=== PATIENT | female | born 1995 | race Caucasian/White ===

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

== ENCOUNTER → 2017-02-07 | Outpatient (CLI) | payer SELFPAY | LOC: BHSO 10:04 | DX: F33.1 Major depressive disorder, recurrent, moderate (principal) ==

== ENCOUNTER → 2017-02-15 | Outpatient (CLI) | payer SELFPAY | LOC: BHSO 11:19 | DX: F33.1 Major depressive disorder, recurrent, moderate (principal) ==

== ENCOUNTER → 2017-03-12 | Outpatient (CLI) | payer SELFPAY | LOC: BHSO 13:08 | DX: F33.1 Major depressive disorder, recurrent, moderate (principal) ==

== ENCOUNTER → 2017-03-26 | Outpatient (CLI) | payer SELFPAY | LOC: BHSO 13:45 | DX: F41.1 Generalized anxiety disorder (principal) ==

== ENCOUNTER → 2017-04-11 | Outpatient (CLI) | payer SELFPAY | LOC: BHSO 14:33 | DX: F33.1 Major depressive disorder, recurrent, moderate (principal) ==

== ENCOUNTER → 2017-04-17 | Outpatient (CLI) | payer SELFPAY | LOC: BHSO 14:27 | DX: F41.1 Generalized anxiety disorder (principal) ==

== ENCOUNTER 2017-04-27 02:03 | Emergency (ER) | payer SELFPAY ==
[~2017-04-27] VITALS: Ht 154.9 cm; Wt 55.9 kg
[~2017-04-27 02:03] MED LIST changes: -EFFE25TA PO; -FELDENE10 MG; -FLEXERIL 1010 MG/TAB PO; -NORCO 325 MG-51 TAB PO; -PRILOSEC10 MG PO
[2017-04-27 02:04] VITALS: TEMP 98.8
[2017-04-27] MEDS ORDERED: FELDENE10 MG (02:09)
[2017-04-27] MEDS ORDERED: EFFE25TA PO (02:09)
[2017-04-27] MEDS ORDERED: PRILOSEC10 MG PO (02:10)
[2017-04-27 02:34] LABS: PH 5 (5-8); SQUAMOUS EPITHELIAL 0-2 /hpf; URINE APPEARANCE Clear; URINE BACTERIA Rare /hpf; URINE BILIRUBIN Negative (NEGATIVE); URINE BLOOD 1+ (NEGATIVE); URINE COLOR Yellow; URINE GLUCOSE Negative (NEGATIVE); URINE KETONE Negative (NEGATIVE); URINE UROBILINOGEN Negative (NEGATIVE)
[2017-04-27 02:34] LABS: BASO % 0.4 % (0.0-2.0); EOS # 0.1 (0.0-0.7); EOS % 1.5 % (0-4.0); GRAN # 4.6 (1.4-6.5); GRAN % 48.6 % (42.2-75.2); HEMATOCRIT 40.2 % (35.0-45.0); HEMOGLOBIN 13.3 g/dl (12.0-15.0); LYMPH % 42.1 % (20.0-51.0); MEAN CELL VOLUME 83 fl (80.0-95.0); MEAN CORPUSCULAR HEMOGLOBIN 28 pg (26.0-32.0); MEAN CORPUSCULAR HGB CONC 33 g/dl (33.0-37.0); MEAN PLATELET VOLUME 10.8 fl (7.4-10.4); MONO # 0.7 (0.1-0.6); MONO % 7.2 % (1.7-9.3); PLATELET COUNT 190 K/mm3 (130-400); RED BLOOD COUNT 4.84 M/mm3 (4.10-5.30); REDCELL DISTRIBUTION WIDTH-CV 12.2 % (11.5-14.5); WHITE BLOOD COUNT 9.5 K/mm3 (4.8-10.8)
[2017-04-27 02:48] LABS: ADJUSTED CALCIUM 8.8 mg/dL (8.4-10.2); ALBUMIN 4.7 gm/dL (3.5-5.0); BILIRUBIN,TOTAL 0.4 mg/dL (0.0-1.0); CALCIUM 9.4 mg/dL (8.4-10.2); CREATININE, serum 0.86 mg/dL (0.52-1.25); POTASSIUM 3.9 mmol/L (3.4-5.0); TOTAL PROTEIN 7.8 gm/dL (6.4-8.2)
[2017-04-27] MEDS ORDERED: FLEXERIL 1010 MG/TAB PO (04:53)
[2017-04-27] MEDS ORDERED: NORCO 325 MG-51 TAB PO (04:53)
[2017-04-27 04:56] VITALS: BP 120/84; PULSE 98
== END 2017-04-27 05:05 | disposition home or self-care (01) ==
LOC: COL.ER 02:03
PROVIDERS: Emergency Medicine
DX: S40.021A Contusion of right upper arm, initial encounter (principal); Z32.02 Encounter for pregnancy test, result negative; V03.10XA Pedestrian on foot injured in collision with car, pick-up truck or van in traffic accident, initial encounter; Y92.410 Unspecified street and highway as the place of occurrence of the external cause

== ENCOUNTER → 2017-05-01 | Outpatient (CLI) | payer SELFPAY ==
[~2017-05-01] MED LIST changes: +BACTRIM DS 8001 TAB PO; +BACTROBAN 22GM22 GM NAS; +CEFTIN 250250 MG/TAB PO; +DOXYCYCLINE 10100 MG PO; +EFFE25TA PO; +EFFEXOR-XR150 MG PO; +FELDENE10 MG PO; +FLEXERIL 1010 MG/TAB PO; +HUMIRA(CF)40 MG/0.4 SQ; +LYRICA 50MG CAP50 MG PO; +NEXPLANON68 MG ID; +NORCO 325 MG-51 TAB PO; +PRILOSEC10 MG PO; +TYLENOL 8 HR PO; +ULTRAM 50MG TAB50 MG PO; +ZYRTEC 10MG10 MG PO
== END ==
LOC: BHSO 14:29
DX: F32.9 Major depressive disorder, single episode, unspecified (principal)

== ENCOUNTER → 2017-05-21 | Outpatient (CLI) | payer SELFPAY ==
[~2017-05-21] MED LIST changes: -BACTRIM DS 8001 TAB PO; -BACTROBAN 22GM22 GM NAS; -CEFTIN 250250 MG/TAB PO; -DOXYCYCLINE 10100 MG PO; -EFFEXOR-XR150 MG PO; +FELDENE10 MG; -FELDENE10 MG PO; -HUMIRA(CF)40 MG/0.4 SQ; -LYRICA 50MG CAP50 MG PO; -NEXPLANON68 MG ID; -TYLENOL 8 HR PO; -ULTRAM 50MG TAB50 MG PO; -ZYRTEC 10MG10 MG PO
== END ==
LOC: BHSO 13:29
DX: F41.1 Generalized anxiety disorder (principal)

== ENCOUNTER → 2017-05-28 | Outpatient (CLI) | payer SELFPAY | LOC: BHSO 14:33 | DX: F41.1 Generalized anxiety disorder (principal) ==

== ENCOUNTER → 2017-06-04 | Outpatient (CLI) | payer SELFPAY | LOC: BHSO 13:33 | DX: F33.1 Major depressive disorder, recurrent, moderate (principal) ==

== ENCOUNTER → 2017-06-18 | Outpatient (CLI) | payer SELFPAY | LOC: BHSO 13:37 | DX: F41.1 Generalized anxiety disorder (principal) ==

== ENCOUNTER → 2017-07-10 | Outpatient (CLI) | payer SELFPAY | LOC: BHSO 14:29 | DX: F41.1 Generalized anxiety disorder (principal) ==

== ENCOUNTER → 2017-07-17 | Outpatient (CLI) | payer SELFPAY | LOC: BHSO 14:23 | DX: F41.1 Generalized anxiety disorder (principal) ==

== ENCOUNTER → 2017-08-06 | Outpatient (CLI) | payer SELFPAY | LOC: BHSO 13:24 | DX: F33.1 Major depressive disorder, recurrent, moderate (principal) ==

== ENCOUNTER → 2017-08-28 | Outpatient (CLI) | payer OTHER | LOC: BHSO 14:29 | DX: F41.1 Generalized anxiety disorder (principal) ==

== ENCOUNTER → 2017-09-04 | Outpatient (CLI) | payer OTHER | LOC: BHSO 13:26 | DX: F33.1 Major depressive disorder, recurrent, moderate (principal) ==

== ENCOUNTER → 2017-09-09 | Outpatient (CLI) | payer OTHER | LOC: COL.RAD 08-27 08:30 | DX: M25.851 Other specified joint disorders, right hip (principal); G89.11 Acute pain due to trauma | CPT/HCPCS: A9585; J3301; Q9967 ==

== ENCOUNTER → 2017-09-11 | Outpatient (CLI) | payer OTHER | LOC: BHSO 13:10 | DX: F41.1 Generalized anxiety disorder (principal) ==

== ENCOUNTER → 2017-09-23 | Outpatient (CLI) | payer OTHER | LOC: BHSO 13:31 | DX: F41.1 Generalized anxiety disorder (principal) | CPT/HCPCS: G0463 ==

== ENCOUNTER → 2017-09-26 | Outpatient (CLI) | payer OTHER | LOC: BHSO 13:11 | DX: F41.1 Generalized anxiety disorder (principal) ==

== ENCOUNTER → 2018-06-18 | Outpatient (CLI) | payer SELFPAY | LOC: COL.RAD 13:30 | DX: M25.552 Pain in left hip (principal) | CPT/HCPCS: A9585; J3301; Q9967 ==

== ENCOUNTER 2019-03-11 18:32 | Inpatient (IN) | payer OTHER ==
[~2019-03-11] VITALS: Ht 154.9 cm; Wt 54.4 kg
[~2019-03-11 18:32] MED LIST changes: -FELDENE10 MG; +FELDENE10 MG PO
[2019-03-11 19:07] LABS: HEMATOCRIT 39.9 % (37.0-47.0); HEMOGLOBIN 12.9 g/dl (12.5-16.0); MEAN CELL VOLUME 88 fl (80.0-100.0); MEAN CORPUSCULAR HEMOGLOBIN 29 pg (27.0-31.0); MEAN CORPUSCULAR HGB CONC 32 g/dl (33.0-37.0); PLATELET COUNT 223 K/mm3 (130-400); RED BLOOD COUNT 4.53 M/mm3 (4.10-5.30); REDCELL DISTRIBUTION WIDTH-CV 13.2 % (11.5-14.5)
[2019-03-11] MEDS ORDERED: LYRICA 50MG CAP50 MG PO (19:14)
[2019-03-11 19:16] LABS: COLLECTION METHOD CLEAN CATCH
[2019-03-11 19:16] LABS: ALBUMIN 4.6 gm/dL (3.5-5.0); BILIRUBIN,TOTAL 0.6 mg/dL (0.0-1.0); CALCIUM 9.9 mg/dL (8.4-10.2); CREATININE, serum 1.13 (0.52-1.25); POTASSIUM 3.8 mmol/L (3.4-5.0); TOTAL PROTEIN 8.7 gm/dL (6.4-8.2)
[2019-03-11 19:28] LABS: C-REACTIVE PROTEIN 22.4 mg/dL (0.0-0.9)
[2019-03-11 19:43] LABS: BAND 5 % (0-10); LYMPHOCYTE 4 % (20.0-51.0); METAMYELOCYTE 1 % (0-0); NEUTROPHILS 87 % (42.0-75.2); PLATELET ESTIMATE NORMAL (NORMAL)
[2019-03-11 19:54] LABS: MUCOUS Present /lpf; PH 5 (5-8); URINE APPEARANCE Cloudy; URINE BACTERIA Moderate /hpf; URINE BILIRUBIN Negative (NEGATIVE); URINE BLOOD 2+ (NEGATIVE); URINE COLOR Yellow; URINE GLUCOSE Negative (NEGATIVE); URINE KETONE Trace (NEGATIVE); URINE LEUKOCYTE ESTERASE 2+ (NEGATIVE); URINE NITRATE Positive (NEGATIVE); URINE PROTEIN(semi-quant) 2+ (NEGATIVE); URINE RBC >50 /hpf; URINE UROBILINOGEN Negative (NEGATIVE)
--- NOTE | 2019-03-11 21:45 | NUR ---
PT TO RM 308 PER COT FROM ER. ASSESSMENT COMPLETE. MOTHER AT SIDE. IVF OF NS INFUSING IN R AC. C/O MILD PAIN TO BILAT LQ RATED 5/10. CALL LIGHT AT SIDE.
[2019-03-11 22:09] VITALS: BP 108/56; PULSE 107; TEMP 98.4
[2019-03-11 22:36] LABS: INR 1.3 (0.8-3.0); PROTHROMBIN TIME 15.5 SECONDS (9.7-12.8)
[2019-03-11] MEDS ORDERED: EFFEXOR-XR150 MG PO (23:06)
[2019-03-11] MEDS ORDERED: HUMIRA(CF)40 MG/0.4 SQ (23:07)
[2019-03-11] MEDS ORDERED: TYLENOL 8 HR PO (23:08)
[2019-03-11] MEDS ORDERED: ZYRTEC 10MG10 MG PO (23:08)
[2019-03-12 01:11] VITALS: BP 109/52; PULSE 131; TEMP 103
[2019-03-12] MEDS ORDERED: NEXPLANON68 MG ID (01:19)
[2019-03-12 04:50] VITALS: BP 108/71; PULSE 96; TEMP 98.2
--- NOTE | 2019-03-12 05:00 | NUR ---
PT REQUESTS AND GIVEN MOTRIN 400MG PO FOR RLQ PAIN 03/04. AMBULATES TO BR AND THEN BACK TO BED. CALL LIGHT IN REACH. MOTHER AT BEDSIDE.
[2019-03-12 07:17] VITALS: BP 93/47; PULSE 96; TEMP 98.4
[2019-03-12 07:26] LABS: MEAN CELL VOLUME 90 fl (80.0-100.0); MEAN CORPUSCULAR HGB CONC 32 g/dl (33.0-37.0); MEAN PLATELET VOLUME 10.6 fl (7.4-10.4); PLATELET COUNT 174 K/mm3 (130-400); RED BLOOD COUNT 3.53 M/mm3 (4.10-5.30); REDCELL DISTRIBUTION WIDTH-CV 13.5 % (11.5-14.5)
--- NOTE | 2019-03-12 07:30 | NUR ---
PT GIVEN UA CUP TO OBTAIN SPECIMEN AND INSTRUCTED TO NOTIFY NURSE WHEN IS OBTAINED. REPORT GIVEN TO ONCOMING RN. CALL LIGHT IN REACH.
[2019-03-12 07:32] LABS: HEMATOCRIT 31.6 % (37.0-47.0); MEAN CORPUSCULAR HEMOGLOBIN 28 pg (27.0-31.0)
[2019-03-12 07:34] LABS: ALBUMIN 2.9 gm/dL (3.5-5.0); BILIRUBIN,TOTAL 0.2 mg/dL (0.0-1.0); CREATININE, serum 1.08 (0.52-1.25); POTASSIUM 3.9 mmol/L (3.4-5.0); TOTAL PROTEIN 5.7 gm/dL (6.4-8.2)
[2019-03-12 08:54] LABS: BAND 12 % (0-10); LYMPHOCYTE 8 % (20.0-51.0); NEUTROPHILS 69 % (42.0-75.2)
[2019-03-12 08:55] LABS: PLATELET ESTIMATE NORMAL (NORMAL)
--- NOTE | 2019-03-12 10:55 | NUR ---
COLLECTED URINE SPECIMEN AT THIS TIME. PT HAD C/O PAIN AT THIS TIME, THIS NURSE ADMINISTERED PRN PAIN MED. PT VOICED SHE HAD SOME NAUSEA WELL, ADMINISTERED ZOFRAN. HAS NOTED CHILLS AT THIS TIME, RECIEVED WARM BLANKET. IV FLUIDS BACKED DOWN TO 100ML/HR. NO OTHER ISSUES VOICED AT THIS TIME.
[2019-03-12 11:21] VITALS: BP 102/55; PULSE 88; TEMP 98.6
--- NOTE | 2019-03-12 14:22 | NUR ---
Initial visit; Patient thanked Leather Polisher for looking in on her and wishing her well and letting her know Leather Polisher is available to listen.
[2019-03-12 15:08] VITALS: BP 124/76; PULSE 111; TEMP 97.6
--- NOTE | 2019-03-12 16:15 | NUR ---
SW met with patient and mother to discuss discharge planning. Patient lives independently at home with her mother. Patient's PCP is Dr Tarango and she obtain prescriptions from [facility]. Patient is independent with all ADLs. Patient does not have insurance but patient's mother reports patient has been approved for [employer] assistance. PARTICIA reported a financial counselor will visit with patient. PATRICIA does not anticipate any discharge needs.
--- NOTE | 2019-03-12 17:34 | NUR ---
UROLOGIST CONSULT WAS CANCELLED AND CONFIRMED WITH HOSPITALIST. NOTIFIED FAMILY AND WERE UPSET. WE ASKED HOSPITALIST WOULD COME UP AND VISIT WITH THE PATIENT AND FAMILY DUE TO CANCELLING THE UROLOGY CONSULT. [facility] WAS NOTIFIED AND SAID THAT THEY WOULD COME VISIT.
--- NOTE | 2019-03-12 18:17 | NUR ---
DR. FINN INTO SEE PATIENT AT THIS TIME.
[2019-03-12 19:21] VITALS: BP 117/74; PULSE 89; TEMP 97.8
--- NOTE | 2019-03-12 21:30 | NUR ---
Pt resting in bed with mother at side. States she is feeling better. Has ate a part of a sandwich and cookie for a BS earlier in the low 60's. Has crackers and peanut butter at bedside. Rocephin 1gm IV given and pt request rest of HS meds be given later when she is ready to go to sleep. Will continue to monitor. Call light within reach.
[2019-03-13 00:07] VITALS: BP 139/76; PULSE 99; TEMP 97.9
[2019-03-13 04:50] VITALS: BP 112/60; PULSE 85; TEMP 98.4
--- NOTE | 2019-03-13 05:01 | NUR ---
Pt asleep in bed. Took HS meds around 2AM per pt request. Had 2 low BS last evening. Stated she felt better early this AM. IVF continue to infuse at 100mL/hr.
[2019-03-13 06:19] LABS: MEAN CELL VOLUME 88 fl (80.0-100.0); MEAN CORPUSCULAR HGB CONC 32 g/dl (33.0-37.0); MEAN PLATELET VOLUME 10.6 fl (7.4-10.4); PLATELET COUNT 164 K/mm3 (130-400); RED BLOOD COUNT 3.34 M/mm3 (4.10-5.30); REDCELL DISTRIBUTION WIDTH-CV 13.6 % (11.5-14.5)
[2019-03-13 06:20] LABS: HEMATOCRIT 29.4 % (37.0-47.0); HEMOGLOBIN 9.4 g/dl (12.5-16.0); MEAN CORPUSCULAR HEMOGLOBIN 28 pg (27.0-31.0)
[2019-03-13 06:40] LABS: BAND 8 % (0-10); HYPOCHROMIA 1+; LYMPHOCYTE 13 % (20.0-51.0); NEUTROPHILS 73 % (42.0-75.2); PLATELET ESTIMATE NORMAL (NORMAL)
[2019-03-13 06:41] LABS: ALBUMIN 2.8 gm/dL (3.5-5.0); ANISOCYTOSIS 1+; BILIRUBIN,TOTAL 0.2 mg/dL (0.0-1.0); CALCIUM 8.3 mg/dL (8.4-10.2); CREATININE, serum 0.87 (0.52-1.25); MICROCYTOSIS 1+; POTASSIUM 3.6 mmol/L (3.4-5.0); TOTAL PROTEIN 5.7 gm/dL (6.4-8.2)
--- NOTE | 2019-03-13 08:01 | NUR ---
Uneventful shift. Report given to TRACY Huang. Pt refused Lovenox 40mg this AM.
[2019-03-13 08:21] VITALS: BP 112/61; PULSE 80; TEMP 98.3
[2019-03-13] MEDS ORDERED: CEFTIN 250250 MG/TAB PO (10:32)
[2019-03-13] MEDS ORDERED: ULTRAM 50MG TAB50 MG PO (10:45)
--- NOTE | 2019-03-13 12:30 | NUR ---
Pt assessment complete and charted. Pt sitting in bed with mom at bedside. Pt denies dizziness, SOB, on room air. Pt states she has some nausea but no vomiting. pt blood sugar 74 this morning, encouraged to eat, currently sipping on pepsi and root beer. RAC IV fluids infusing with no complications. Pt states she has mild flank pain but denies wanting medication. No other needs at this time.
--- NOTE | 2019-03-13 14:31 | NUR ---
pt discharge instructions discussed and reviewed with patient and family. Verbalized understanding. RAC IV discontinued with catheter tip intact, no complications. this nurse instructed pt to call when ready to be escorted out. Mom was to go and "roll windows down in car and return to help pack up stuff". Informed pt we would get her a wheelchair to be escorted in. All questions answered, no other needs at this time.
--- NOTE | 2019-03-13 15:00 | NUR ---
This nurse and the aide checked room for pt since she had not called out to be escorted down for discharge. Pt and mom not in room. pt escorted herself out with mom, did not call for staff to escort her out. All discharge papers signed and verbalized understanding.
== END 2019-03-13 15:03 | disposition home or self-care (01) | DRG 872 ==
LOC: COL.ER 18:32 → MEDICAL 20:51
PROVIDERS: Family Medicine; Nurse Practitioner Family; ADMIT Student in an Organized Health Care Education/Training Program
DX: A41.9 Sepsis, unspecified organism (principal); N12 Tubulo-interstitial nephritis, not specified as acute or chronic; E86.0 Dehydration; M06.9 Rheumatoid arthritis, unspecified; M79.7 Fibromyalgia; N20.0 Calculus of kidney; R53.82 Chronic fatigue, unspecified; E16.2 Hypoglycemia, unspecified; Z87.440 Personal history of urinary (tract) infections
CPT/HCPCS: 99222-AI; 99239; A4216; J0696; J1170; J1885; J2405; J7030; Q9967

== ENCOUNTER 2019-04-23 18:23 | Inpatient (IN) | payer SELFPAY ==
[~2019-04-23] VITALS: Ht 154.9 cm; Wt 51.7 kg
[~2019-04-23 18:23] MED LIST changes: +CEFTIN 250250 MG/TAB PO; +EFFEXOR-XR150 MG PO; +HUMIRA(CF)40 MG/0.4 SQ; +LYRICA 50MG CAP50 MG PO; +NEXPLANON68 MG ID; +TYLENOL 8 HR PO; +ULTRAM 50MG TAB50 MG PO; +ZYRTEC 10MG10 MG PO
[2019-04-23] MEDS ORDERED: BACTROBAN 22GM22 GM NAS (19:09)
[2019-04-23] MEDS ORDERED: BACTRIM DS 8001 TAB PO (19:09)
[2019-04-23 19:39] LABS: BASO # 0.1 (0.0-0.2); BASO % 0.4 % (0.0-2.0); EOS # 0.1 (0.0-0.7); EOS % 0.8 % (0-4.0); GRAN # 9.1 (1.4-6.5); GRAN % 69.4 % (42.2-75.2); HEMATOCRIT 37.9 % (37.0-47.0); HEMOGLOBIN 12.2 g/dl (12.5-16.0); LYMPH # 2.6 (1.2-3.4); LYMPH % 20.2 % (20.0-51.0); MEAN CELL VOLUME 87 fl (80.0-100.0); MEAN CORPUSCULAR HEMOGLOBIN 28 pg (27.0-31.0); MEAN CORPUSCULAR HGB CONC 32 g/dl (33.0-37.0); MEAN PLATELET VOLUME 10.4 fl (7.4-10.4); MONO # 1.2 (0.1-0.6); MONO % 8.8 % (1.7-9.3); PLATELET COUNT 218 K/mm3 (130-400); RED BLOOD COUNT 4.34 M/mm3 (4.10-5.30); REDCELL DISTRIBUTION WIDTH-CV 12.6 % (11.5-14.5)
[2019-04-23 19:52] LABS: ALBUMIN 4.7 gm/dL (3.5-5.0); BILIRUBIN,TOTAL 0.3 mg/dL (0.0-1.0); C-REACTIVE PROTEIN 1.5 mg/dL (0.0-0.9); CALCIUM 9.7 mg/dL (8.4-10.2); CREATININE, serum 1.15 (0.52-1.25); POTASSIUM 3.8 mmol/L (3.4-5.0)
[2019-04-23 22:20] VITALS: BP 118/64; PULSE 73; TEMP 98.3
[2019-04-24 06:37] VITALS: BP 115/50; PULSE 72; TEMP 97.7
[2019-04-24 08:19] LABS: BASO % 0.4 % (0.0-2.0); EOS # 0.2 (0.0-0.7); GRAN # 6.4 (1.4-6.5); GRAN % 61.7 % (42.2-75.2); HEMOGLOBIN 10.8 g/dl (12.5-16.0); LYMPH # 2.7 (1.2-3.4); LYMPH % 25.8 % (20.0-51.0); MEAN CELL VOLUME 88 fl (80.0-100.0); MEAN CORPUSCULAR HEMOGLOBIN 28 pg (27.0-31.0); MEAN CORPUSCULAR HGB CONC 32 g/dl (33.0-37.0); MEAN PLATELET VOLUME 10.8 fl (7.4-10.4); MONO % 9.7 % (1.7-9.3); PLATELET COUNT 187 K/mm3 (130-400); RED BLOOD COUNT 3.81 M/mm3 (4.10-5.30)
[2019-04-24 08:24] LABS: HEMATOCRIT 33.6 % (37.0-47.0)
[2019-04-24 08:28] LABS: CALCIUM 8.5 mg/dL (8.4-10.2); CREATININE, serum 1.02 (0.52-1.25); POTASSIUM 3.8 mmol/L (3.4-5.0)
--- NOTE | 2019-04-24 08:30 | NUR ---
Patient is awake and alert in bed, mom is at bedside. Patient is laying on the right side and states she does not have pain while resting in that current position. Did allow assessment of the site as long as it wasnt touched. Was offered pain medication but declines at this time.
[2019-04-24 11:43] VITALS: BP 115/61; PULSE 68; TEMP 98.1
--- NOTE | 2019-04-24 12:29 | NUR ---
Vancomycin Initial Dosing Pharmacy Note Ordering provider: Joselito Madrid MD Indication/duration: Left leg cellulitis LABS: WBC 10.4, SCr 1.02, CrCl~55, GFR 68 Recommendation: Will continue Vancomycin 750 mg (~15 mg/kg/dose) IV Q12H. Checking a Vancomycin trough on 04/26/19 @0830. Pharmacy will continue to monitor. Loading dose: 1 gm x1 dose Maintenance dose: 750 mg every 12 hours Trough goal: 10-15 ug/mL
--- NOTE | 2019-04-24 15:44 | NUR ---
radio survey worker met with patient to discuss discharge planning. Patient lives with her mother, in [place], who currently works and also receives disability. Patient states she will meet with Liudmila Espinosa at [place] next week for the Disability meeting. Patient states that Dr Damian dropped her as she missed an appointment. Worker provided information on [facility] and patient states they will work on obtaining a new primary care provider after next week. Patient states she obtains three of her medications through the pharmaceutical precription program and one medication at [facility]. Patient states that [place] [facility] [employer] allows her mother to make a monthly payment and they fill her medication. Patient will return to her home upon discharge and anticipates discharge on Saturday. Patient states she drives and hopes to find a job soon.
[2019-04-24 17:10] VITALS: BP 119/69; PULSE 76; TEMP 98.5
--- NOTE | 2019-04-24 18:57 | NUR ---
Patient is resting in bed on right side. Mother is at bedside. No needs verbalized. Call light and personal items are in reach.
--- NOTE | 2019-04-24 20:00 | NUR ---
PT IN BED WITH HOB ELEVATED TO 30 DEGREE ANGLE. PT HAS MOTHER IN ROOM AT BEDSIDE. PT ADVISES THAT SHE HAS PAIN RATED A 6/10, BUT REFUSES MEDICATION AT THIS TIME. PT LAYS ON RIGHT SIDE TO KEEP OFF OF THE LEFT SIDE. LEFT THIGH TENDER TO TOUCH AND REFUSES TO ALLOW NURSE TO TOUCH AREA. LEFT THIGH HAS MARKINGS OF WHERE REDNESS IS, BUT IT APPEARS THAT THE REDNESS EXCESSEDS OVER THE SKIN MARKINGS BY ABOUT 2 TO 3 INCHES. PT REFUSED THE OINTMENT THAT WAS TO BE APPLIED TO THE AREA. PT GIVEN PEPSI REQUESTED AND NO FURTHER NEEDS AT THIS TIME. CALL LIGHT WITHIN REACH.
[2019-04-24 20:08] VITALS: BP 116/60; PULSE 72; TEMP 96.7
[2019-04-25] VITALS (13 sets, daily range): BP systolic 110–139; BP diastolic 42–83; PULSE 65–86; TEMP 97.6–98.2
--- NOTE | 2019-04-25 05:16 | NUR ---
PT IN BED LAYING ON RIGHT SIDE. PT CALLED ME IN AT AROUND 0000 TO ADVISE ME THAT THE SCAB ON HER LEFT LEG WAS DRAINING. THE PT HAD SANGUINEOUS DRAINAGE THAT GOT ON THE BED PAD AND ON THE SHEETS. OFFERED TO CHANGE THE BED SHEETS AND BLANKETS, BUT PT DECLINED. ALSO, OFFERED TO TRY AND CLEAN WOUND WITH NORMAL SALINE, BECAUSE THE PT HAD DRAINAGE ON THE BACK OF HER LEG, PT REFUSED. OFFERED A TELFA DRSG BUT PT REFUSED. PT KEPT LEG IN ONE POSITION FOR A LONG TIME. PT IS AFRAID TO MOVE HER LEFT LEG BECAUSE SHE IS AFRAID THE SCAB ON HER LEG WANTS TO FALL OFF. PT WAS GIVEN TRAMADOL AT 0107 FOR PAIN RATED AT A 9/10. ALSO, PT WAS THEN GIVEN TYLENOL AT 0310 BECAUSE SHE STILL HAD PAIN. PT WANTED BENADRYL, BUT ADVISED DID NOT HAVE AN ORDER FOR BENADRYL. ADVISED PT TO TRY THE TYLENOL FIRST AND IF THE PAIN DID NOT SUBSIDE, THAT CAN CALL THE DOCTOR AND GET AN ORDER FOR BENADRYL. WAITED AN HOUR AND WENT BACK IN ROOM AND PT WAS ON HER CELLPHONE, PT ADVISED THAT HER PAIN WAS BETTER AND SHE DID NOT NEED THE BENADRYL. PT HAS BEEN UP MOST OF THE NIGHT. PT ADVISES THAT SHE DOES STAY UP LATE, MOST OF THE TIME. PT'S MOTHER IS STILL IN ROOM WITH PT. CALL LIGHT WITHIN REACH.
[2019-04-25 07:13] LABS: BASO % 0.3 % (0.0-2.0); EOS # 0.2 (0.0-0.7); EOS % 2.3 % (0-4.0); GRAN # 5.3 (1.4-6.5); GRAN % 57.7 % (42.2-75.2); HEMOGLOBIN 10.6 g/dl (12.5-16.0); LYMPH # 2.7 (1.2-3.4); LYMPH % 29.4 % (20.0-51.0); MEAN CELL VOLUME 88 fl (80.0-100.0); MEAN CORPUSCULAR HEMOGLOBIN 28 pg (27.0-31.0); MEAN CORPUSCULAR HGB CONC 32 g/dl (33.0-37.0); MEAN PLATELET VOLUME 11.2 fl (7.4-10.4); MONO # 0.9 (0.1-0.6); PLATELET COUNT 194 K/mm3 (130-400); RED BLOOD COUNT 3.78 M/mm3 (4.10-5.30); REDCELL DISTRIBUTION WIDTH-CV 12.7 % (11.5-14.5)
[2019-04-25 07:18] LABS: HEMATOCRIT 33.3 % (37.0-47.0)
[2019-04-25 07:28] LABS: CALCIUM 9.1 mg/dL (8.4-10.2); CREATININE, serum 0.88 (0.52-1.25)
--- NOTE | 2019-04-25 10:31 | NUR ---
Assessment completed, alert/oriented, vital signs stable, reporting pain to left lower leg 7-, wound has started to drain and we obtained a culture, on IVF and Abx and consulted surgery for eval, mother present in the room, denies other needs at this time
--- NOTE | 2019-04-25 20:31 | NUR ---
PT WENT DOWN FOR SURGERY ABOUT 1939. RECEIVED CALL FROM DASHAWN THAT PT WILL BE COMING BACK SOON.
--- NOTE | 2019-04-25 20:45 | NUR ---
PT ARRIVED FROM SURGERY VIA BED. PT WAS A/O X4, DENIES PAIN OR DISCOMFORT. MOTHER STAYED BEHIND TO SPEAK WITH THE PHYSCIAN. PT ASSISTED UP TO THE BEDSIDE COMMODE AND GIVEN WARM BLANKETS. NO NEEDS AT THIS TIME, CALL LIGHT WITHIN REACH. DRSG TO LEFT THIGH IS CLEAN, DRY, AND INTACT.
--- NOTE | 2019-04-25 21:00 | NUR ---
PT WAS ASSISTED TO BEDSIDE COMMODE. PT REQUESTED EXTRA PILL FOR LEFT LEG WHICH WAS GIVEN TO HER AND A WARM BLANKET FOR COMFORT. PT ON CELL PHONE AND WATCHING TV. NO NEEDS AT THIS TIME, CALL LIGHT WITHIN REACH.
[2019-04-26] VITALS (7 sets, daily range): BP systolic 109–137; BP diastolic 59–80; PULSE 63–81; TEMP 97.9–98.7
--- NOTE | 2019-04-26 02:01 | NUR ---
PT IN BED WITH HOB ELEVATED TO 45 DEGREE ANGLE. PT SLEEPING/RESTING WITH NO S/S OF PAIN OR DISCOMFORT. PT WAS GIVEN TRAMADOL FOR PAIN THAT PT RATED AT A 7/10. PT HAS MOTHER BY SIDE AND CALL LIGHT WITHIN REACH. NO NEEDS AT THIS TIME. RESP EVEN AND UNLABORED.
--- NOTE | 2019-04-26 06:16 | NUR ---
UNEVENTFUL NIGHT FOR PT. PT'S DRSG STAYED CLEAN, DRY, AND INTACT. PT WAS STILL AFRAID TO MOVE HER LEG, BUT SHE DID GET UP TO US THE BATHROOM AND APPLIED MINIMUMAL WEIGHT TO THE LEFT LEG, CALL LIGHT WITHIN REACH.
[2019-04-26 07:02] LABS: BASO % 0.5 % (0.0-2.0); EOS # 0.2 (0.0-0.7); EOS % 2.8 % (0-4.0); GRAN # 4.6 (1.4-6.5); GRAN % 55.1 % (42.2-75.2); HEMOGLOBIN 10.1 g/dl (12.5-16.0); LYMPH # 2.7 (1.2-3.4); LYMPH % 31.9 % (20.0-51.0); MEAN CELL VOLUME 88 fl (80.0-100.0); MEAN CORPUSCULAR HEMOGLOBIN 28 pg (27.0-31.0); MEAN CORPUSCULAR HGB CONC 32 g/dl (33.0-37.0); MEAN PLATELET VOLUME 11.2 fl (7.4-10.4); MONO # 0.8 (0.1-0.6); MONO % 9.3 % (1.7-9.3); PLATELET COUNT 172 K/mm3 (130-400); RED BLOOD COUNT 3.65 M/mm3 (4.10-5.30); REDCELL DISTRIBUTION WIDTH-CV 12.7 % (11.5-14.5)
[2019-04-26 07:03] LABS: CALCIUM 8.5 mg/dL (8.4-10.2); CREATININE, serum 1.07 (0.52-1.25)
[2019-04-26 07:06] LABS: HEMATOCRIT 32.1 % (37.0-47.0)
--- NOTE | 2019-04-26 07:50 | NUR ---
Patient is awake and alert resting in bed. Is laying on right side which she says it the most comfortable position. Dressing to left thigh is clean dry and intact. She states that the physician is going to re-dress the area and would prefer for it not to be uncovered until he is here to look at it. She states she is having some pain, describes it to be stinging. Was offered pain medication and declines to have any at ths time. Patient requested to have IV to left forearm removed as it was painful. IV to right forearm is functioning and antibiotics are infusing. Call light and personal itmes are within reach.
--- NOTE | 2019-04-26 19:48 | NUR ---
Patient is resting in bed, family is at bedside, no needs verbalized. Call light is within reach.
--- NOTE | 2019-04-26 22:00 | NUR ---
Pt resting in bed with mother and family at bedside. Laughing and joking with family. Denies any needs at this time. Call light in reach. Will continue to monoitor.
--- NOTE | 2019-04-27 00:15 | NUR ---
Dressing to L thigh changed after giving Olivia 1 tab 2200 and Ultram at 2300. Changed using sterile technique. Removed old dressing with moderate amount bloody drainage on the folded 4x4's. Packing removed, saturated with blood. Outer edge beefy red. Skin on outer skin slightly red and warm to touch approx 2-2.5 in. alatna around wound. Repacked with 1/2" packing strip loosely. Covered with folded 4x4's and then an ABD. Taped in place. Pt screamed thru most of the dressing change. Request and given Benadryl 50mg for sleep.
[2019-04-27 04:11] VITALS: BP 124/65; PULSE 58; TEMP 98.5
[2019-04-27 07:17] LABS: CALCIUM 9.1 mg/dL (8.4-10.2); CREATININE, serum 0.99 (0.52-1.25); POTASSIUM 4.1 mmol/L (3.4-5.0)
[2019-04-27 08:02] VITALS: BP 116/69; PULSE 69; TEMP 98.2
[2019-04-27 12:27] VITALS: BP 118/58; PULSE 77; TEMP 98.2
[2019-04-27 15:49] VITALS: BP 117/75; PULSE 79; TEMP 98.2
--- NOTE | 2019-04-27 16:02 | NUR ---
Received pt and report from TRACY Kitchen. Pt laying in bed scrolling social media. Requesting pain medication, rating pain at 7/10. Abx running in RFA IV w/ no complications. Administered Ultram PRN per OCT. Pt voices no other concerns at this time. Call light within reach.
[2019-04-27 20:00] VITALS: BP 129/79; PULSE 63; TEMP 98.4
--- NOTE | 2019-04-27 21:00 | NUR ---
Pt sitting upright in bed with several family members in room for a birthday democrat. NS infusing in R mid FA at 75mL/hr. Site without s/s infiltration. HR reg. Lung sounds CTA. BS x4. Pt reports no BM since last Sat. Dressing to left lateral thigh dry and intact. VS within normal range, Appetite good. Ambulates to BR independently. Receiving Vanco 750 mg and Zosyn. Call light in reach. Hu continue to monitor.
[2019-04-27 23:45] VITALS: BP 128/71; PULSE 77; TEMP 98
[2019-04-28 04:20] VITALS: BP 125/70; PULSE 63; TEMP 98
[2019-04-28 06:50] LABS: BASO % 0.6 % (0.0-2.0); EOS # 0.3 (0.0-0.7); EOS % 4.3 % (0-4.0); GRAN # 2.6 (1.4-6.5); GRAN % 37.3 % (42.2-75.2); HEMOGLOBIN 10.6 g/dl (12.5-16.0); LYMPH # 3.4 (1.2-3.4); LYMPH % 48.9 % (20.0-51.0); MEAN CELL VOLUME 89 fl (80.0-100.0); MEAN CORPUSCULAR HEMOGLOBIN 28 pg (27.0-31.0); MEAN CORPUSCULAR HGB CONC 31 g/dl (33.0-37.0); MEAN PLATELET VOLUME 10.8 fl (7.4-10.4); MONO # 0.6 (0.1-0.6); MONO % 8.8 % (1.7-9.3); PLATELET COUNT 232 K/mm3 (130-400); RED BLOOD COUNT 3.83 M/mm3 (4.10-5.30); REDCELL DISTRIBUTION WIDTH-CV 12.7 % (11.5-14.5)
[2019-04-28 07:10] LABS: CALCIUM 8.8 mg/dL (8.4-10.2); CREATININE, serum 1.07 (0.52-1.25); POTASSIUM 4.1 mmol/L (3.4-5.0)
--- NOTE | 2019-04-28 07:45 | NUR ---
Pt states she doesn't want to be bothered this AM as she is tired. Mother asleep in recliner. INT infiltrated around midnight. Attempted 3 times and obtained new INT site in upper R FA. Fluids and antibiotics restarted. Call light within reach. 0045 - Dressing to lateral side of right thigh changed. Pt tolerated much better tonight. Quarter size sanguineous drainage to folded 4x4's over wound. Packing removed with sanguineous drainage covering strip of packing. Wound measured 1cm wide by 2cm long. Repacked loosely with approx. 5 inches of packing strip. Covered with 3 folded 4x4's and then half of an ABD. Secured with medipore tape. Sterile technique used throughout dressing change.
[2019-04-28 09:06] VITALS: BP 116/76; PULSE 63; TEMP 97.9
--- NOTE | 2019-04-28 09:16 | NUR ---
Pt assessment complete. Pt is laying in bed upon entry, she is A/O x3. Her breathing is even and unlabored on RA. Pt reports pain to L leg 7/10, PRN pain medication administered. Pt reports she does not want bandage changed until midnight. No redness around dressing, dressing CDI. No swelling visualized. Pt denies N/V. Reports she has not had a BM since admission. Isolation precautions discussed with patient who verbalizes understanding. No needs at this time. PT in to work with patient.
--- NOTE | 2019-04-28 09:31 | NUR ---
Pt refusing Miralax regardless of having no BM. Colace given. Pt refusing to let nurse run Vancomycin with Zosyn despite explanation that it is safe and the antibiotics need to be done in a timely manner. Pt still refuses. Pt also refusing to let nurse start a new IV site for infusion. Risks discussed with patient who states "well my WBC's are still going down". Dr to be notified.
[2019-04-28] MEDS ORDERED: DOXYCYCLINE 10100 MG PO (12:10)
[2019-04-28] MEDS ORDERED: NORCO 325 MG-51 TAB PO (12:12)
[2019-04-28 12:24] VITALS: BP 102/59; PULSE 58; TEMP 97.8
--- NOTE | 2019-04-28 13:45 | NUR ---
New antibiotic administered, use and side effects discussed with patient. Pt denying any needs, N/V. Pt denies any PO intake today, reports she does not feel hungry. Reports N/V at this time. Small amount of yellow emesis present. PRN Zofran administered. Discussed with patient this could be a side effect of taking medication on an empty stomach. No further needs. Call light within reach.
--- NOTE | 2019-04-28 15:00 | NUR ---
Offered to change patients dressing to allow her to go home, pt declined and requests Christa, RN at hotel night auditor to change dressing. Reassured the patient that any of the RN's were knowledgable to change the dressing and we would ensure she was comfortable prior to change. Pt again declines stating Christa is the only RN that has changed it and would like to continue with that. POC discussed with patient, plan to d/c after dressing change. No needs at this time. Call light within reach. Mother at bedside.
[2019-04-28 17:03] VITALS: BP 99/46; PULSE 72; TEMP 97.9
--- NOTE | 2019-04-28 20:15 | NUR ---
Pt's dressing changed to L lateral thigh. Old dressing removed with very small amount serious drainage to the 4x4's over wound. Packing removed with moderate amt serosanguineous drainage. No change to the red area around wound. 4x4's folded and placed over wound and then covered with ABD and taped in place. Discharge papers signed and dismissed with mother in stable condition per w/c.
== END 2019-04-28 20:00 | disposition home or self-care (01) | DRG 572 ==
LOC: COL.ER 18:23 → MEDICAL 18:25
PROVIDERS: Nurse Anesthetist, Certified Registered; Physician Assistant; Surgery; ADMIT Hospitalist
PROC: 0JBM0ZZ Excision of Left Upper Leg Subcutaneous Tissue and Fascia, Open Approach (ICD-10-PCS; principal; 2019-04-25 20:00)
DX: L03.116 Cellulitis of left lower limb (principal); M06.9 Rheumatoid arthritis, unspecified; M79.7 Fibromyalgia; F32.9 Major depressive disorder, single episode, unspecified; F41.9 Anxiety disorder, unspecified; K21.9 Gastro-esophageal reflux disease without esophagitis; L29.9 Pruritus, unspecified; L02.416 Cutaneous abscess of left lower limb; R53.83 Other fatigue; B95.62 Methicillin resistant Staphylococcus aureus infection as the cause of diseases classified elsewhere; Z87.442 Personal history of urinary calculi; Z87.440 Personal history of urinary (tract) infections; Z79.891 Long term (current) use of opiate analgesic
CPT/HCPCS: OP; 99223-AI; 99231-AI; 99232-AI; 99239; G0378; J1200; J1650; J2250; J2405; J2543; J2704; J3370; J7030; J7050

== ENCOUNTER 2019-11-09 23:13 | Emergency (ER) | payer SELFPAY ==
[~2019-11-09] VITALS: Ht 154.9 cm; Wt 54.5 kg
[~2019-11-09 23:13] MED LIST changes: +BACTRIM DS 8001 TAB PO; +BACTROBAN 22GM22 GM NAS; +DOXYCYCLINE 10100 MG PO
[2019-11-10 00:15] LABS: COLLECTION METHOD CLEAN CATCH
[2019-11-10 00:18] LABS: BASO % 0.5 % (0.0-2.0); EOS # 0.1 (0.0-0.7); EOS % 1.3 % (0-4.0); GRAN # 3.3 (1.4-6.5); GRAN % 51.8 % (42.2-75.2); HEMATOCRIT 40.3 % (37.0-47.0); LYMPH # 2.1 (1.2-3.4); LYMPH % 33.2 % (20.0-51.0); MEAN CELL VOLUME 87 fl (80.0-100.0); MEAN CORPUSCULAR HEMOGLOBIN 28 pg (27.0-31.0); MEAN CORPUSCULAR HGB CONC 32 g/dl (33.0-37.0); MEAN PLATELET VOLUME 10.9 fl (7.4-10.4); MONO # 0.8 (0.1-0.6); MONO % 12.9 % (1.7-9.3); PLATELET COUNT 157 K/mm3 (130-400); RED BLOOD COUNT 4.63 M/mm3 (4.10-5.30); REDCELL DISTRIBUTION WIDTH-CV 12.6 % (11.5-14.5)
[2019-11-10 00:30] LABS: ALANINE AMINOTRANSFERASE 23 U/L (4-34); ALBUMIN 4.3 gm/dL (3.5-5.0); ALKALINE PHOSPHATASE 72 U/L (50-136); ANION GAP 9 mmol/L (7-16); AST,SGOT 25 U/L (15-37); BILIRUBIN,TOTAL 0.2 mg/dL (0.0-1.0); BLOOD UREA NITROGEN 22 mg/dL (7-17); CALCIUM 9.1 mg/dL (8.4-10.2); CARBON DIOXIDE 26 mmol/L (22-30); CHLORIDE 103 mmol/L (98-107); CREATININE, serum 1.11 (0.52-1.25); GLUCOSE 114 mg/dL (74-106); POTASSIUM 3.9 mmol/L (3.4-5.0); SODIUM 138 mmol/L (137-145); TOTAL PROTEIN 7.4 gm/dL (6.4-8.2)
[2019-11-10 00:35] LABS: MUCOUS Present /lpf; PH 6 (5-8); URINE APPEARANCE Clear; URINE BACTERIA Rare /hpf; URINE BILIRUBIN Negative (NEGATIVE); URINE BLOOD Negative (NEGATIVE); URINE COLOR Yellow; URINE GLUCOSE Negative (NEGATIVE); URINE KETONE Negative (NEGATIVE); URINE LEUKOCYTE ESTERASE Negative (NEGATIVE); URINE NITRATE Negative (NEGATIVE); URINE PROTEIN(semi-quant) Negative (NEGATIVE); URINE RBC 0-2 /hpf; URINE UROBILINOGEN Negative (NEGATIVE)
[2019-11-10 00:38] LABS: C-REACTIVE PROTEIN < 0.5 mg/dL (0.0-0.9)
[2019-11-10] MEDS ORDERED: ZOFRAN ODT4 MG PO (01:43)
[2019-11-10 02:03] VITALS: BP 110/79; PULSE 77; TEMP 98.6
== END 2019-11-10 02:13 | disposition home or self-care (01) ==
LOC: COL.ER 23:13
PROVIDERS: Nurse Practitioner
DX: R10.9 Unspecified abdominal pain (principal); F32.9 Major depressive disorder, single episode, unspecified; F41.9 Anxiety disorder, unspecified; M79.7 Fibromyalgia
CPT/HCPCS: J1885; J2405; J7030

== ENCOUNTER 2020-03-20 20:25 | Emergency (ER) | payer SELFPAY ==
[~2020-03-20] VITALS: Ht 154.9 cm; Wt 52.3 kg
[~2020-03-20 20:25] MED LIST changes: +ZOFRAN ODT4 MG PO
[2020-03-20 20:32] VITALS: TEMP 97.7
[2020-03-20 20:46] LABS: COLLECTION METHOD CLEAN CATCH
[2020-03-20 20:54] LABS: MUCOUS Present /lpf; PH 5 (5-8); URINE APPEARANCE Hazy; URINE BACTERIA None Seen /hpf; URINE BILIRUBIN Negative (NEGATIVE); URINE BLOOD Negative (NEGATIVE); URINE COLOR Yellow; URINE GLUCOSE Negative (NEGATIVE); URINE KETONE Negative (NEGATIVE); URINE LEUKOCYTE ESTERASE Negative (NEGATIVE); URINE NITRATE Negative (NEGATIVE); URINE PROTEIN(semi-quant) Negative (NEGATIVE); URINE RBC 0-2 /hpf; URINE UROBILINOGEN Negative (NEGATIVE)
[2020-03-20 21:35] LABS: BASO # 0.1 (0.0-0.2); BASO % 0.4 % (0.0-2.0); EOS # 0.1 (0.0-0.7); EOS % 0.9 % (0-4.0); GRAN # 9.8 (1.4-6.5); GRAN % 72.2 % (42.2-75.2); HEMATOCRIT 39.9 % (37.0-47.0); LYMPH # 2.7 (1.2-3.4); LYMPH % 19.8 % (20.0-51.0); MEAN CELL VOLUME 86 fl (80.0-100.0); MEAN CORPUSCULAR HEMOGLOBIN 28 pg (27.0-31.0); MEAN CORPUSCULAR HGB CONC 33 g/dl (33.0-37.0); MEAN PLATELET VOLUME 10.6 fl (7.4-10.4); MONO # 0.9 (0.1-0.6); MONO % 6.3 % (1.7-9.3); PLATELET COUNT 197 K/mm3 (130-400); RED BLOOD COUNT 4.64 M/mm3 (4.10-5.30); REDCELL DISTRIBUTION WIDTH-CV 12.1 % (11.5-14.5)
[2020-03-20 21:49] LABS: ALANINE AMINOTRANSFERASE 15 U/L (4-34); ALBUMIN 4.4 gm/dL (3.5-5.0); ALKALINE PHOSPHATASE 66 U/L (50-136); ANION GAP 6 mmol/L (7-16); AST,SGOT 24 U/L (15-37); BILIRUBIN,TOTAL 0.5 mg/dL (0.0-1.0); BLOOD UREA NITROGEN 15 mg/dL (7-17); CALCIUM 9.3 mg/dL (8.4-10.2); CARBON DIOXIDE 28 mmol/L (22-30); CHLORIDE 102 mmol/L (98-107); CREATININE, serum 0.99 (0.52-1.25); GLUCOSE 100 mg/dL (74-106); LIPASE 142 U/L (23-300); POTASSIUM 3.7 mmol/L (3.4-5.0); SODIUM 136 mmol/L (137-145); TOTAL PROTEIN 7.7 gm/dL (6.4-8.2)
[2020-03-20 21:52] LABS: C-REACTIVE PROTEIN < 0.5 mg/dL (0.0-0.9)
[2020-03-20 23:40] VITALS: BP 116/70; PULSE 88
== END 2020-03-20 23:38 | disposition home or self-care (01) ==
LOC: COL.ER 20:25
PROVIDERS: Emergency Medicine; Physician Assistant
DX: R10.9 Unspecified abdominal pain (principal); Z87.442 Personal history of urinary calculi
CPT/HCPCS: J1885; J2405; J7030